=== PATIENT | male | born 1965 | race Two or more races ===

== ENCOUNTER 2017-05-03 23:32 | Emergency (ER) | payer SELFPAY ==
[~2017-05-03] VITALS: Ht 167.6 cm; Wt 72.6 kg
[2017-05-04] LABS: BILIRUBIN,URINE NEGATIVE (NEG); GLUCOSE,URINE NEGATIVE (NEG); NITRITE,URINE NEGATIVE (NEG); PROTEIN,URINE NEGATIVE (NEG-TRACE); UROBILINOGEN,URINE 0.2 mg/dL (0.2 mg/dL)
--- NOTE | 2017-05-04 00:15 | PHYS DOC ---
Adult General Chief Complaint Chief Complaint: ABDOMINAL PAIN HPI HPI Patient is a 51 year old male with complaints of abdominal pain and flank pain that started 3 days ago. She denies any vomiting, fevers, chills, rashes, trauma , falls. No sick contacts. Patient also compresses of dysuria, possible blood in the urine, no discharge. Patient does not describe testicular pain. Patient does not have any significant past medical history. Review of Systems Review of Systems Constitutional: Denies fever or chills [] Eyes: Denies change in visual acuity, redness, or eye pain [] HENT: Denies nasal congestion or sore throat [] Respiratory: Denies cough or shortness of breath [] Cardiovascular: No chest pain GI: Denies nausea, vomiting, bloody stools or diarrhea. Yes to abdominal pain BACK: He is to flank pain left : Denies dysuria or hematuria [] Musculoskeletal: Denies back pain or joint pain [] Integument: Denies rash or skin lesions [] Neurologic: Denies headache, focal weakness or sensory changes [] Endocrine: Denies polyuria or polydipsia [] Current Medications Current Medications Current Medications Medications (Trade) Dose Ordered Sig/Ramona Start Time Stop Time Status Last Admin Dose Admin Hyoscyamine (Anaspaz) 0.125 mg PRN Q4HRS PRN 05/04/17 02:15 Ketorolac Tromethamine (Toradol) 15 mg 1X ONCE 05/04/17 01:00 05/04/17 01:01 DC 05/04/17 01:14 15 MG Morphine Sulfate 2 mg 1X ONCE 05/04/17 01:30 05/04/17 01:31 DC 05/04/17 01:15 2 MG Sodium Chloride 1,000 ml @ 1,000 mls/hr 1X ONCE 05/04/17 01:00 05/04/17 01:59 DC 05/04/17 01:14 1,000 MLS/HR Sucralfate (Carafate) 1 gm 1X ONCE 05/04/17 02:30 05/04/17 02:31 Allergies Allergies Allergies Coded Allergies Type Severity Reaction Last Updated Verified No Known Drug Allergies 05/04/17 No Physical Exam Physical Exam Constitutional: Well developed, well nourished, no acute distress, non-toxic appearance. [] HENT: Normocephalic, atraumatic, bilateral external ears normal, oropharynx moist, no oral exudates, nose normal. [] Eyes: EOMI, conjunctiva normal, no discharge. [] Neck: Normal range of motion, no tenderness, supple, no stridor. [] Cardiovascular:Heart rate regular rhythm, no murmur [] Lungs & Thorax: Bilateral breath sounds clear to auscultation [] Abdomen: Bowel sounds normal, soft, diffuse mild tenderness to palpation without guarding or rebound, no masses, no pulsatile masses. [] Skin: Warm, dry, no erythema, no rash. [] Back: No tenderness, no CVA tenderness. [] Extremities: No tenderness, no cyanosis, no clubbing, ROM intact, no edema. [] Neurologic: Alert and oriented X 3, normal motor function, , no focal deficits noted. [] Psychologic: Affect normal, judgement normal, mood normal. [] Current Patient Data Vital Signs Vital Signs Date Time Temp Pulse Resp B/P (MAP) Pulse Ox O2 Delivery O2 Flow Rate FiO2 05/04/17 01:25 63 16 130/87 (101) 96 Room Air 05/04/17 00:22 97.7 97.7 Lab Values Laboratory Tests Test 05/03/17 23:44 05/04/17 01:10 Urine Collection Type Unknown Urine Color Yellow Urine Clarity Clear Urine pH 6.0 Urine Specific [place] 1.020 Urine Protein Negative mg/dL (NEG-TRACE) Urine Glucose (UA) Negative mg/dL (NEG) Urine Ketones (Stick) Negative mg/dL (NEG) Urine Blood Negative (NEG) Urine Nitrite Negative (NEG) Urine Bilirubin Negative (NEG) Urine Urobilinogen Dipstick 0.2 mg/dL (0.2 mg/dL) Urine Leukocyte Esterase Negative (NEG) Urine RBC Occ /HPF (0-2) Urine WBC 1-4 /HPF (0-4) Urine Squamous Epithelial Cells Few /LPF Urine Bacteria Few /HPF (0-FEW) Urine Mucus Marked /LPF White Blood Count 6.7 x10^3/uL (4.0-11.0) Red Blood Count 5.11 x10^6/uL (4.30-5.70) Hemoglobin 14.6 g/dL (13.0-17.5) Hematocrit 43.2 % (39.0-53.0) Mean Corpuscular Volume 85 fL (79-100) Mean Corpuscular Hemoglobin 29 pg (25-35) Mean Corpuscular Hemoglobin Concent 34 g/dL (31-37) Red Cell Distribution Width 13.4 % (11.5-14.5) Platelet Count 212 x10^3/uL (140-400) Neutrophils (%) (Auto) 63 % (31-73) Lymphocytes (%) (Auto) 27 % (24-48) Monocytes (%) (Auto) 7 % (0-9) Eosinophils (%) (Auto) 3 % (0-3) Basophils (%) (Auto) 1 % (0-3) Neutrophils # (Auto) 4.2 x10^3uL (1.8-7.7) Lymphocytes # (Auto) 1.8 x10^3/uL (1.0-4.8) Monocytes # (Auto) 0.5 x10^3/uL (0.0-1.1) Eosinophils # (Auto) 0.2 x10^3/uL (0.0-0.7) Basophils # (Auto) 0.0 x10^3/uL (0.0-0.2) Sodium Level 139 mmol/L (136-145) Potassium Level 3.9 mmol/L (3.5-5.1) Chloride Level 105 mmol/L (98-107) Carbon Dioxide Level 27 mmol/L (21-32) Anion Gap 7 (6-14) Blood Urea Nitrogen 13 mg/dL (8-26) Creatinine 0.7 mg/dL (0.7-1.3) Estimated GFR (Cockcroft-Gault) 118.9 BUN/Creatinine Ratio 19 (6-20) Glucose Level 101 mg/dL (70-99) H Calcium Level 8.5 mg/dL (8.5-10.1) Total Bilirubin 0.6 mg/dL (0.2-1.0) Aspartate Amino Transferase (AST) 42 U/L (15-37) H Alanine Aminotransferase (ALT) 39 U/L (16-63) Alkaline Phosphatase 98 U/L (46-116) Total Protein 7.8 g/dL (6.4-8.2) Albumin 3.2 g/dL (3.4-5.0) L Albumin/Globulin Ratio 0.7 (1.0-1.7) L Laboratory Tests 05/04/17 01:10 Laboratory Tests 05/04/17 01:10 EKG EKG [] Radiology/Procedures Radiology/Procedures CT no acute findings[] Course & Med Decision Making Course & Med Decision Making Pertinent Labs and Imaging studies reviewed. (See chart for details) pt in no distress, in form of labs and imaging and need for follow-up and recheck. Patient and family understand the need for follow-up and reevaluation. [] Dragon Disclaimer Dragon Disclaimer This electronic medical record was generated, in whole or in part, using a voice recognition dictation system. Departure Departure Impression: Primary Impression: Abdominal pain Disposition: HOME, SELF-CARE Condition: STABLE Referrals: NO PCP (PCP) Patient Instructions: Abdominal Pain (Nonspecific) Additional Instructions: Please follow-up with your PCP for recheck and reevaluation in one to 2 days, or he can follow one of the clinics in the list provided to you. If your symptoms worsen or new concerning symptoms develop and ordered your PCP is not available please return to the ED for recheck and reevaluation. Scripts Acetaminophen With Codeine (ACETAMINOPHEN-COD #3 TABLET) 1 Each Tablet 1 TAB PO PRN Q6HRS Y for PAIN for 2 Days, #8 TAB Prov: Jesus RUFF MD 05/04/17 Jesus RUFF MD May 04, 2017 00:15
[2017-05-04 00:26] LABS: RBC,URINE OCC /HPF (0-2)
[2017-05-04 00:27] LABS: BACTERIA,URINE FEW /HPF (0-FEW); SQUAMOUS EPITHELIAL CELL,UR FEW /LPF
[2017-05-04] MEDS ORDERED: IV NORMAL SALINE 1000ML BAG 1,000 ML IV ONE (01:00)
[2017-05-04] MEDS ORDERED: KETOROLAC 15 MG/ML VIAL. IV ONE (01:00)
[2017-05-04] MEDS ORDERED: MORPHINE SULFATE 2 MG/ML DISP.SYRIN. IM ONE (01:00)
[2017-05-04] MEDS ORDERED: MORPHINE SULFATE 2 MG/ML DISP.SYRIN. IV ONE (01:30)
--- NOTE | 2017-05-04 01:34 | RAD ---
CT abdomen and pelvis without contrast: Reason for examination: Abdominal pain and flank pain. Helical images were obtained through the abdomen and pelvis with no intravenous or oral contrast administered. Reconstruction was performed in sagittal and coronal planes. Exposure: One or more of the following individualized dose reduction techniques were utilized for this examination: 1. Automated exposure control 2. Adjustment of the mA and/or kV according to patient size 3. Use of iterative reconstruction technique. Lung bases show some dependent atelectasis. The heart size is normal with no pericardial effusion. No abnormality seen at the liver, spleen, pancreas or adrenal glands. The gallbladder is contracted but no choleliths are identified. The abdominal aorta and inferior vena cava show no acute abnormalities. No abnormality seen at the appendix. There is no evidence of diverticulosis or diverticulitis. The small intestinal tract is not distended and shows no wall thickening or evidence of obstruction. The kidneys show no renal masses, renal calculi, hydronephrosis or evidence of obstructive uropathy. No abnormality seen at the bladder, prostate gland or seminal vesicles. No free fluid or free air is seen in the abdomen or pelvis. No acute bony abnormalities are seen. IMPRESSION: No renal calculi or evidence of obstructive uropathy. No acute abnormality seen in the abdomen or pelvis. Electronically signed by: Dena Fracnis MD (05/04/2017 1:30 AM) [facility] [place]
[2017-05-04 01:41] LABS: BASO % 1 % (0-3); EOS % 3 % (0-3); HEMATOCRIT 43.2 % (39.0-53.0); HEMOGLOBIN 14.6 g/dL (13.0-17.5); LYMPH # 1.8 x10^3/uL (1.0-4.8); LYMPH % 27 % (24-48); MEAN CORPUSCULAR HEMOGLOBIN 29 pg (25-35); MEAN CORPUSCULAR HGB CONC 34 g/dL (31-37); MEAN CORPUSCULAR VOLUME 85 fL (79-100); MONO % 7 % (0-9); NEUT % 63 % (31-73); PLATELET COUNT 212 x10^3/uL (140-400); RED BLOOD COUNT 5.11 x10^6/uL (4.30-5.70); RED CELL DISTRIBUTION WIDTH 13.4 % (11.5-14.5); WHITE BLOOD COUNT 6.7 x10^3/uL (4.0-11.0)
[2017-05-04 01:52] LABS: CALCIUM 8.5 mg/dL (8.5-10.1); CREATININE 0.7 mg/dL (0.7-1.3); GFR 118.9; POTASSIUM 3.9 mmol/L (3.5-5.1)
[2017-05-04 02:00] LABS: ALBUMIN 3.2 g/dL (3.4-5.0); ALBUMIN/GLOBULIN RATIO 0.7 (1.0-1.7); TOTAL BILIRUBIN 0.6 mg/dL (0.2-1.0); TOTAL PROTEIN 7.8 g/dL (6.4-8.2)
[2017-05-04] MEDS ORDERED: HYOSCYAMINE 0.125 MG TAB.RAPDIS PO PRN (02:15)
[2017-05-04] MEDS ORDERED: ACET1TAB33 PO (02:25)
[2017-05-04] MEDS ORDERED: SUCRALFATE 1 GM/10 ML ORAL.SUSP. PEG ONE (02:30)
[2017-05-04 02:32] VITALS: BP 129/75
== END 2017-05-04 03:07 | disposition home or self-care (01) ==
LOC: ER 23:32
DX: R10.84 Generalized abdominal pain (principal); R30.0 Dysuria
CPT/HCPCS: 36415; 74176; 80053; 81001; 85025; 96361; 96374; 96375; 99285; J1885; J2270; J7030

== ENCOUNTER 2019-12-04 09:44 | Emergency (ER) | payer OTHER ==
[~2019-12-04] VITALS: Ht 167.6 cm; Wt 70.0 kg
[~2019-12-04 09:44] MED LIST: ACET1TAB33 PO
[2019-12-04 09:55] VITALS: BP 159/90
[2019-12-04 10:25] LABS: BASO % 0 % (0-3); EOS # 0.1 x10^3/uL (0.0-0.7); EOS % 2 % (0-3); HEMATOCRIT 49.2 % (39.0-53.0); HEMOGLOBIN 16.6 g/dL (13.0-17.5); LYMPH # 1.2 x10^3/uL (1.0-4.8); LYMPH % 21 % (24-48); MEAN CORPUSCULAR HEMOGLOBIN 29 pg (25-35); MEAN CORPUSCULAR HGB CONC 34 g/dL (31-37); MEAN CORPUSCULAR VOLUME 87 fL (79-100); MONO # 0.4 x10^3/uL (0.0-1.1); MONO % 6 % (0-9); NEUT # 4.3 x10^3/uL (1.8-7.7); NEUT % 71 % (31-73); PLATELET COUNT 217 x10^3/uL (140-400); RED BLOOD COUNT 5.68 x10^6/uL (4.30-5.70); RED CELL DISTRIBUTION WIDTH 13.9 % (11.5-14.5); WHITE BLOOD COUNT 6.1 x10^3/uL (4.0-11.0)
--- NOTE | 2019-12-04 10:29 | PHYS DOC ---
Past Medical History Past Medical History: No Pertinent History Past Surgical History: No Surgical History Smoking Status: Never Smoker Alcohol Use: None Drug Use: None General Adult EDM: Chief Complaint: Palpitations HPI: HPI: Patient is a 54-year-old [place] male who presents to the emergency department with anxiety, palpitations and 3 weeks of chest discomfort. His niece who is the supervisor wrapping room states that he is just had a close family friend recently which is caused increased nervousness. He denies any shortness of breath or dyspnea on exertion. He denies any fever chills or sweats. He denies cough or congestion. The symptoms were worse this morning, they woke him up so he decided to come to the emergency department for further evaluation. [] Review of Systems: Review of Systems: Constitutional: Denies fever or chills. [] Eyes: Denies change in visual acuity. [] HENT: Denies nasal congestion or sore throat. [] Respiratory: Denies cough or shortness of breath. [] Cardiovascular: Reports chest pain and palpitations [] GI: Denies abdominal pain, nausea, vomiting, bloody stools or diarrhea. [] : Denies dysuria. [] Musculoskeletal: Denies back pain or joint pain. [] Integument: Denies rash. [] Neurologic: Denies headache, focal weakness or sensory changes. [] Endocrine: Denies polyuria or polydipsia. [] Lymphatic: Denies swollen glands. [] Psychiatric: Reports anxiety [] Heart Score: HEART Score for Chest Pain: HEART Score for Chest Pain Response (Comments) Value History Slighlty/Non-Suspicious 0 ECG Normal 0 Age >45 - < 65 1 Risk Factors No Risk Factors 0 Troponin < Normal Limit 0 Total 1 Risk Factors: Risk Factors: DM, Current or recent (<one month) smoker, HTN, HLP, family history of CAD, obesity. Risk Scores: Score 0 - 3: 2.5% MACE over next 6 weeks - Discharge Home Score 4 - 6: 20.3% MACE over next 6 weeks - Admit for Clinical Observation Score 7 - 10: 72.7% MACE over next 6 weeks - Early Invasive Strategies Current Medications: Current Medications Medications (Trade) Dose Ordered Sig/Ramona Start Time Stop Time Status Last Admin Dose Admin Aspirin (Aspirin Chewable) 324 mg 1X ONCE 12/04/19 10:30 12/04/19 10:31 12/04/19 10:13 324 MG Diazepam (Valium) 5 mg 1X ONCE 12/04/19 10:30 12/04/19 10:31 12/04/19 10:13 5 MG Allergies: Allergies: Allergies Coded Allergies Type Severity Reaction Last Updated Verified No Known Drug Allergies 05/04/17 No Physical Exam: PE: Constitutional: Well developed, well nourished, no acute distress, non-toxic appearance. [] HENT: Normocephalic, atraumatic, bilateral external ears normal, oropharynx moist, no oral exudates, nose normal. [] Eyes: PERRLA, EOMI, conjunctiva normal, no discharge. [] Neck: Normal range of motion, no tenderness, supple, no stridor. [] Cardiovascular:Heart rate regular rhythm, no murmur [] Lungs & Thorax: Bilateral breath sounds clear to auscultation [] Abdomen: Bowel sounds normal, soft, no tenderness, no masses, no pulsatile masses. [] Skin: Warm, dry, no erythema, no rash. [] Back: No tenderness, no CVA tenderness. [] Extremities: No tenderness, no cyanosis, no clubbing, ROM intact, no edema. [] Neurologic: Alert and oriented X 3, normal motor function, normal sensory function, no focal deficits noted. [] Psychologic: Anxious [] Current Patient Data: Labs: Laboratory Tests Test 12/04/19 10:00 White Blood Count 6.1 x10^3/uL (4.0-11.0) Red Blood Count 5.68 x10^6/uL (4.30-5.70) Hemoglobin 16.6 g/dL (13.0-17.5) Hematocrit 49.2 % (39.0-53.0) Mean Corpuscular Volume 87 fL (79-100) Mean Corpuscular Hemoglobin 29 pg (25-35) Mean Corpuscular Hemoglobin Concent 34 g/dL (31-37) Red Cell Distribution Width 13.9 % (11.5-14.5) Platelet Count 217 x10^3/uL (140-400) Neutrophils (%) (Auto) 71 % (31-73) Lymphocytes (%) (Auto) 21 % (24-48) L Monocytes (%) (Auto) 6 % (0-9) Eosinophils (%) (Auto) 2 % (0-3) Basophils (%) (Auto) 0 % (0-3) Neutrophils # (Auto) 4.3 x10^3/uL (1.8-7.7) Lymphocytes # (Auto) 1.2 x10^3/uL (1.0-4.8) Monocytes # (Auto) 0.4 x10^3/uL (0.0-1.1) Eosinophils # (Auto) 0.1 x10^3/uL (0.0-0.7) Basophils # (Auto) 0.0 x10^3/uL (0.0-0.2) Laboratory Tests 12/04/19 10:00 Vital Signs: Vital Signs Date Time Temp Pulse Resp B/P (MAP) Pulse Ox O2 Delivery O2 Flow Rate FiO2 12/04/19 09:55 98.4 104 20 159/90 (113) 98 Room Air 98.4 EKG: EKG: EKG: Normal sinus rhythm rate of [address]-T changes [] Radiology/Procedures: Radiology/Procedures: [] Impression: REASON: chest pain PROCEDURE: CHEST AP ONLY EXAM: CHEST AP ONLY INDICATION: Chest pain. TECHNIQUE: Single view COMPARISON: None FINDINGS: The heart size is normal. The great vessels appear unremarkable. There is no hilar or mediastinal mass. The lungs are clear. There is no pleural effusion or pneumothorax. There are no significant osseous abnormalities. IMPRESSION: No active cardiopulmonary disease. Course & Med Decision Making: Course & Med Decision Making Pertinent Labs and Imaging studies reviewed. (See chart for details) [ED course: Evaluation reveals an anxious 54-year-old male. He was given Valium during his stay in the department which did help alleviate his symptoms. Given the length of his symptoms and normal EKG and troponin I feel he is at a very low risk for any kind of heart issue. Think patient is safe for discharge home.] Dragon Disclaimer: Dragon Disclaimer: This electronic medical record was generated, in whole or in part, using a voice recognition dictation system. Departure Departure Impression: Primary Impression: Palpitations Additional Impression: Anxiety about health Disposition: 01 HOME, SELF-CARE Condition: STABLE Referrals: NO PCP (PCP) Patient Instructions: Anxiety and Panic Attacks, Chest Pain (Nonspecific), Palpitations Additional Instructions: Return to the emergency department with any new or concerning symptoms Scripts Alprazolam (ALPRAZOLAM) 0.25 Mg Tablet 0.5 MG PO PRN Q6HRS PRN for ANXIETY / AGITATION, #20 TAB 0 Refills Prov: DARRICK MIR DO 12/04/19 DARRICK MIR DO December 04, 2019 10:29
[2019-12-04] MEDS ORDERED: diazePAM 5 MG TABLET PO ONE (10:30)
[2019-12-04] MEDS ORDERED: ASPIRIN CHEWABLE 81 MG TABLET. PO ONE (10:30)
[2019-12-04 10:37] LABS: GFR 77.9; POTASSIUM 3.2 mmol/L (3.5-5.1)
[2019-12-04 10:43] LABS: ALBUMIN 3.6 g/dL (3.4-5.0); ALBUMIN/GLOBULIN RATIO 0.8 (1.0-1.7); TOTAL BILIRUBIN 0.7 mg/dL (0.2-1.0); TOTAL PROTEIN 8.2 g/dL (6.4-8.2)
[2019-12-04] MEDS ORDERED: ALPR0.254 PO (10:48)
--- NOTE | 2019-12-06 08:12 | EKG ---
[facility] [address] [place] [address] Test Date: 2019-12-04 Test Time: 10:04:22 Pat Name: MICHEL LUNA Department: Room: Gender: M Cook [place]: : 1965 Requested By: DARRICK MIR Order Number: [id number] Reading MD: Jorge Alberto Cross Measurements Intervals [place] Rate: 92 P: 34 [place]: 146 QRS: 52 QRSD: 100 T: 47 QT: 366 QTc: 458 Interpretive Statements SINUS RHYTHM T ABNORMALITY IN ANTERIOR LEADS ABNORMAL ECG RI6.01 No previous ECG available for comparison Electronically Signed On 12-06-2019 8:47:54 CDT by Jorge Alberto Cross
== END 2019-12-04 10:59 | disposition home or self-care (01) ==
LOC: ER 09:44
DX: R00.2 Palpitations (principal); F41.9 Anxiety disorder, unspecified; R07.89 Other chest pain
CPT/HCPCS: 36415; 71045; 80053; 84443; 84484; 85025; 93005; 99285-25

== ENCOUNTER 2019-12-24 00:55 | Emergency (ER) | payer OTHER ==
[~2019-12-24] VITALS: Ht 167.6 cm; Wt 71.5 kg
[~2019-12-24 00:55] MED LIST changes: +ALPR0.254 PO
[2019-12-24] MEDS ORDERED: ZOLP10TA PO (01:34)
--- NOTE | 2019-12-24 01:35 | PHYS DOC ---
Past Medical History Past Medical History: No Pertinent History Past Surgical History: No Surgical History Smoking Status: Never Smoker Alcohol Use: None Drug Use: None General Adult EDM: Chief Complaint: Insomnia HPI: HPI: Patient is a 54 year old male who presents with complaint that he is not sleeping very well. Patient was seen at clinic today and was prescribed trazodone but he took 2 of them and still was not able to sleep. He states that he now he is just lightheaded. He does also admit to some burning in his chest and was told that it is reflux. He denies any vomiting or diarrhea. [] Review of Systems: Review of Systems: Constitutional: Denies fever or chills. [] Respiratory: Denies cough or shortness of breath. [] Cardiovascular: Denies chest pain or edema. [] Integument: Denies rash. [] Neurologic: Denies headache, focal weakness or sensory changes. [] Heart Score: Risk Factors: Risk Factors: DM, Current or recent (<one month) smoker, HTN, HLP, family history of CAD, obesity. Risk Scores: Score 0 - 3: 2.5% MACE over next 6 weeks - Discharge Home Score 4 - 6: 20.3% MACE over next 6 weeks - Admit for Clinical Observation Score 7 - 10: 72.7% MACE over next 6 weeks - Early Invasive Strategies Allergies: Allergies: Allergies Coded Allergies Type Severity Reaction Last Updated Verified No Known Drug Allergies 05/04/17 No Physical Exam: PE: Constitutional: Well developed, well nourished, no acute distress, non-toxic appearance. [] HENT: Normocephalic, atraumatic, bilateral external ears normal, oropharynx moist, no oral exudates, nose normal. [] Cardiovascular: Regular rate and rhythm [] Lungs & Thorax: Bilateral breath sounds clear to auscultation [] Abdomen: Bowel sounds normal, soft, no tenderness. [] Skin: Warm, dry, no erythema, no rash. [] Neurologic: Alert and oriented X 3, no focal deficits noted. [] EKG: EKG: [] Radiology/Procedures: Radiology/Procedures: [] Course & Med Decision Making: Course & Med Decision Making Pertinent Labs and Imaging studies reviewed. (See chart for details) [] Dragon Disclaimer: Dragon Disclaimer: This electronic medical record was generated, in whole or in part, using a voice recognition dictation system. Departure Departure Impression: Primary Impression: Insomnia Qualified Codes: G47.00 - Insomnia, unspecified Disposition: HOME, SELF-CARE Condition: STABLE Referrals: NO PCP (PCP) Patient Instructions: Insomnia Scripts Zolpidem Tartrate (AMBIEN) 10 Mg Tablet 10 MG PO PRN QHS PRN for INSOMNIA, #10 TAB 0 Refills Prov: ALBAN BETANCOURT Jr. DO 12/24/19 ALBAN BETANCOURT Jr. DO December 24, 2019 01:34
[2019-12-24 01:57] VITALS: BP 138/90
[2019-12-24] MEDS ORDERED: LIDO:MAALOX 1:1 20 ML SINGLE DOSE. SWSW ONE (02:00)
[2019-12-24] MEDS ORDERED: TRAZ150T49 PO (02:03)
[2019-12-24] MEDS ORDERED: HYDR25TA PO (02:03)
== END 2019-12-24 01:57 | disposition home or self-care (01) ==
LOC: ER 00:55
DX: G47.00 Insomnia, unspecified (principal); R42 Dizziness and giddiness
CPT/HCPCS: 99283

== ENCOUNTER 2019-12-27 15:51 | Emergency (ER) | payer OTHER ==
[~2019-12-27] VITALS: Ht 167.6 cm; Wt 72.0 kg
[~2019-12-27 15:51] MED LIST changes: +HYDR25TA PO; +TRAZ150T49 PO; +ZOLP10TA PO
[2019-12-27 16:29] VITALS: BP 148/93
[2019-12-27] MEDS ORDERED: LIDO:MAALOX 1:1 20 ML SINGLE DOSE. SWSW ONE (17:00)
[2019-12-27] MEDS ORDERED: OMEP20TA63 PO (17:01)
[2019-12-27] MEDS ORDERED: SUCR1TAB35 PO (17:01)
--- NOTE | 2019-12-27 17:01 | PHYS DOC ---
Past Medical History Past Medical History: Other Additional Past Medical Histor: insomnia Past Surgical History: No Surgical History Smoking Status: Never Smoker Alcohol Use: None Drug Use: None General Adult EDM: Chief Complaint: Insomnia HPI: HPI: Patient is a 54 year old male who presented to the ER today due to burning sensation in his epigastric area that kept him from sleeping for about a month. Patient was seen here on 12/04/19 for the same problem, work up included labs and EKG shown no significant problem. He was diagnosed with palpitation, put on benzo and vistaril. He took the medication but did not get better so he came back here on 12/24/19 due to not able to sleep. He was given trazodone and Ambien. Patient said the ambien helped him sleep for 6 hours for one night but he continues to wake up due to burning sensation, pain in his epigastric area. He denied any shortness of air, no chest pain, no nausea or vomiting. No fever. He decided to come back here for reevaluation. Review of Systems: Review of Systems: Constitutional: Denies fever or chills. [] Eyes: Denies change in visual acuity. [] HENT: Denies nasal congestion or sore throat. [] Respiratory: Denies cough or shortness of breath. [] Cardiovascular: Denies chest pain or edema. [] GI: Denies abdominal pain, nausea, vomiting, bloody stools or diarrhea. [] : Denies dysuria. [] Musculoskeletal: Denies back pain or joint pain. [] Integument: Denies rash. [] Neurologic: Denies headache, focal weakness or sensory changes. [] Endocrine: Denies polyuria or polydipsia. [] Lymphatic: Denies swollen glands. [] Psychiatric: Denies depression or anxiety. NOT ABLE TO SLEEP Heart Score: Risk Factors: Risk Factors: DM, Current or recent (<one month) smoker, HTN, HLP, family history of CAD, obesity. Risk Scores: Score 0 - 3: 2.5% MACE over next 6 weeks - Discharge Home Score 4 - 6: 20.3% MACE over next 6 weeks - Admit for Clinical Observation Score 7 - 10: 72.7% MACE over next 6 weeks - Early Invasive Strategies Current Medications: Current Medications Medications (Trade) Dose Ordered Sig/Ramona Start Time Stop Time Status Last Admin Dose Admin Multi-Ingredient Mouthwash/Gargle (Gi Cocktail) 20 ml 1X ONCE 12/27/19 17:00 12/27/19 17:01 UNV Allergies: Allergies: Allergies Coded Allergies Type Severity Reaction Last Updated Verified No Known Drug Allergies 05/04/17 No Physical Exam: PE: Constitutional: Well developed, well nourished, no acute distress, non-toxic appearance. [] HENT: Normocephalic, atraumatic, bilateral external ears normal, oropharynx moist, no oral exudates, nose normal. [] Eyes: PERRLA, EOMI, conjunctiva normal, no discharge. [] Neck: Normal range of motion, no tenderness, supple, no stridor. [] Cardiovascular:Heart rate regular rhythm, no murmur [] Lungs & Thorax: Bilateral breath sounds clear to auscultation [] Abdomen: Bowel sounds normal, soft, no tenderness, no masses, no pulsatile masses. [] Skin: Warm, dry, no erythema, no rash. [] Back: No tenderness, no CVA tenderness. [] Extremities: No tenderness, no cyanosis, no clubbing, ROM intact, no edema. [] Neurologic: Alert and oriented X 3, normal motor function, normal sensory function, no focal deficits noted. [] Psychologic: Affect normal, judgement normal, mood normal. [] Current Patient Data: Vital Signs: Vital Signs Date Time Temp Pulse Resp B/P (MAP) Pulse Ox O2 Delivery O2 Flow Rate FiO2 12/27/19 16:29 98.5 78 12 148/93 (111) 95 Room Air 98.5 EKG: EKG: [] Radiology/Procedures: Radiology/Procedures: [] Course & Med Decision Making: Course & Med Decision Making Pertinent Labs and Imaging studies reviewed. (See chart for details) Patient is a 54 year old male who most likely suffer gastritis, GERD, presented with burning pain in his epigastric area, kept him from sleeping at night, will put him on PPI and carafate to see how he is doing with it. He will need to follow up with her family doctor for reevaluation. Ramses Disclaimer: Ramses Disclaimer: This electronic medical record was generated, in whole or in part, using a voice recognition dictation system. Departure Departure Impression: Primary Impression: Gastritis Additional Impression: GERD (gastroesophageal reflux disease) Disposition: HOME, SELF-CARE Condition: STABLE Referrals: NO PCP (PCP) PLEASE CALL YOUR FAMILY DOCTOR FOR FOLLOW UP THIS WEEK. Patient Instructions: Gastritis, Adult Scripts Omeprazole Magnesium (PRILOSEC OTC) 20 Mg Tablet. 1 TAB PO DAILY for 30 Days, #30 TAB 0 Refills Prov: SUZETTE CHRISTENSEN DO 12/27/19 Sucralfate (CARAFATE) 1 Gm Tablet 1 TAB PO QID for 14 Days, #56 TAB 0 Refills Prov: SUZETTE CHRISTENSEN DO 12/27/19 SUZETTE CHRISTENSEN DO December 27, 2019 17:01
== END 2019-12-27 17:40 | disposition home or self-care (01) ==
LOC: ER 15:51
DX: K29.70 Gastritis, unspecified, without bleeding (principal); K21.9 Gastro-esophageal reflux disease without esophagitis; G47.00 Insomnia, unspecified
CPT/HCPCS: 99283

== ENCOUNTER 2019-12-29 09:46 | Inpatient (IN) | payer OTHER ==
[~2019-12-29] VITALS: Ht 167.6 cm; Wt 72.3 kg
[~2019-12-29 09:46] MED LIST changes: +OMEP20TA63 PO; +SUCR1TAB35 PO
[2019-12-29 10:38] VITALS: BP 139/93
[2019-12-29] MEDS ORDERED: ZOLPIDEM 5 MG TABLET. PO PRN (11:15)
[2019-12-29] MEDS ORDERED: ASPIRIN CHEWABLE 81 MG TABLET. PO ONE ×2 (11:15→16:45)
--- NOTE | 2019-12-29 11:18 | PDOC2 ---
STEPHANIA WHITING CERTIFIED REHABILITATION COUNSELOR 12/29/19 1117: CARDIAC CONSULT DATE OF CONSULT Date of Consult DATE: 12/29/19 TIME: 11:16 REASON FOR CONSULT Reason for Consult: Chest pain REFERRING PHYSICIAN Referring Physician: Dr. Hernandez SOURCE Source: Chart review, Patient HISTORY OF PRESENT ILLNESS HISTORY OF PRESENT ILLNESS This is a yo female who was a direct admit secondary to chest pain. Patient speak [place]. 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 Patient reports he has been experiencing burning pain in his central chest, epigastric region since the end of October. Reports pain occurs in the late evening and is much worse at night. Has been unable to sleep at night due to the pain. After he gets up in the morning, pain resolves. No associated shortness of breath, dizziness, diaphoresis, palpitation. Some mild nausea. Has had a couple visits to the ED for this pain. Most recently, was seen in the ED 12/27/19 and was diagnosed with GERD, gastritis. Was started on Carafate and Protonix. Reports this has not significantly improved pain PAST MEDICAL HISTORY Cardiovascular: No pertinent hx GI: GERD Psych: Depression PAST SURGICAL HISTORY Past Surgical History: No pertinent history FAMILY HISTORY Family History: Other (noncontributory ) SOCIAL HISTORY Smoke: Quit (15 years ago ) ALCOHOL: none Drugs: None Lives: with Family ALLERGIES ALLERGIES: Coded Allergies: No Known Drug Allergies (Unverified , 05/04/17) ROS Review of System 14 point ROS conducted with pertinent positives noted above in HPI PHYSICAL EXAM General: Alert, Oriented X3, Cooperative, No acute distress HEENT: Atraumatic, Mucous membr. moist/pink Lungs: Clear to auscultation, Normal air movement Heart: Regular rate Abdomen: Soft, No tenderness Extremities: No edema, Normal pulses Skin: No significant lesion Neuro: Normal speech, Sensation intact Psych/Mental Status: Mental status NL, Mood NL MUSCULOSKELETAL: No joint tenderness VITALS/I&O VITALS/I&O: Vital Signs Date Time Temp Pulse Resp B/P (MAP) Pulse Ox O2 Delivery O2 Flow Rate FiO2 12/29/19 10:38 98.6 84 18 139/93 (108) 96 Room Air 98.6 ASSESSMENT/PLAN ASSESSMENT/PLAN 1. Chest pain, atypical. Most probably GI in nature 2. GERD 3. Depression Recommendations Routine labs Trend trop Lipids, TSH EKG CXR MPI ordered NPO p MN. RANDY DUFFY MD 12/30/19 0759: CARDIAC CONSULT ASSESSMENT/PLAN ASSESSMENT/PLAN Late entry for 12/29/19 Pt. seen and examined. Agree with above CLINICAL APPEALS AUDITOR note. Less likely to be CAD but due to language barrier cannot rule out cardiac pathology. Agree with stress testing. STEPHANIA WHITING APRN December 29, 2019 11:17 RANDY DUFFY MD December 30, 2019 07:59
[2019-12-29] MEDS: SUCRALFATE 1 GM TABLET. PO SCH ×3 (11:30→20:19)
[2019-12-29 12:13] LABS: BASO % 1 % (0-3); EOS # 0.1 x10^3/uL (0.0-0.7); EOS % 2 % (0-3); HEMOGLOBIN 15.9 g/dL (13.0-17.5); LYMPH # 1.4 x10^3/uL (1.0-4.8); LYMPH % 20 % (24-48); MEAN CORPUSCULAR HEMOGLOBIN 30 pg (25-35); MEAN CORPUSCULAR HGB CONC 35 g/dL (31-37); MEAN CORPUSCULAR VOLUME 86 fL (79-100); MONO # 0.4 x10^3/uL (0.0-1.1); MONO % 5 % (0-9); NEUT % 73 % (31-73); PLATELET COUNT 215 x10^3/uL (140-400); RED BLOOD COUNT 5.38 x10^6/uL (4.30-5.70); RED CELL DISTRIBUTION WIDTH 13.3 % (11.5-14.5); WHITE BLOOD COUNT 6.8 x10^3/uL (4.0-11.0)
[2019-12-29 12:42] LABS: ALBUMIN 3.7 g/dL (3.4-5.0); ALBUMIN/GLOBULIN RATIO 0.9 (1.0-1.7); CALCIUM 8.2 mg/dL (8.5-10.1); GFR 77.9; POTASSIUM 3.6 mmol/L (3.5-5.1); TOTAL BILIRUBIN 0.5 mg/dL (0.2-1.0); TOTAL PROTEIN 7.9 g/dL (6.4-8.2)
[2019-12-29 12:43] LABS: CHOLESTEROL/HDL RATIO 5.3
--- NOTE | 2019-12-29 14:15 | NUR ---
pt leaving unit for stress test
[2019-12-29] MEDS ORDERED: REGADENOSON 0.4 MG/5 ML DISP.SYRIN. IV ONE (15:00)
--- NOTE | 2019-12-29 15:28 | RAD ---
EXAM: CHEST PA LATERAL 12/29/2019 12:03 PM CLINICAL INDICATION:Chest pain COMPARISON:Chest radiograph 12/04/2019 TECHNIQUE:PA and lateral views of the chest FINDINGS:The heart and mediastinum are normal. Lungs are adequately expanded. No pulmonary edema. No consolidation, pleural effusion, or pneumothorax. No acute osseous abnormality. IMPRESSION:No acute cardiopulmonary abnormality. Electronically signed by: Chhaya Le MD (12/29/2019 3:25 PM) [id number]
--- NOTE | 2019-12-29 16:04 | NUR ---
pt returned from stress test at approx 1605.
[2019-12-29] MEDS: PANTOPRAZOLE 40 MG TABLET.DR. PO SCH (16:47)
--- NOTE | 2019-12-29 17:40 | RAD ---
MR#: [id number] Date of Study: 12/29/2019 Ordering Physician: JACOB ELIZONDO, Referring Physician: CUCA MAYO Tech: RT Basil Jean) (N) APPROVED REPORT Test Type: Pharmacological Stress Nurse/Tech: RT Miranda (Cristal) (N) Test Indications: chest pain Cardiac History: none Medications: see EHR Medical History: see EHR Resting ECG: sinus rhythm Resting Heart Rate: 66 bpm Resting Blood Pressure: 123/81mmHg Nurse/Tech Notes Attempted treadmill first but to unsafe and hard time communicating with patient since he does not sp eak Maori. Consent: The procedure was explained to the patient in lay terms. Informed consent was witnessed. Servando eout was entered into [employer]. History and Stress Test performed by RT Basil Jean) (N) Pharm. Details Pharmacologic stress testing was performed using 0.4mg per 5ml of regadenoson given intravenously ove r 7-10 seconds. POST EXERCISE Reason for Termination: Infusion complete Max HR: 118 bpm Max Blood Pressure: 153/69mmHg Chest Pain: No. Arrhythmia: No. INTERPRETATION Stress EKG Conclusion: Baseline EKG showed sinus rhythm. No ischemic changes at peak stress. No arr hythmias. Imaging Protocol IMAGE PROTOCOL: Rest Tc-99m/stress Tc-99m 1 day Rest: Stress: Viability: Radiopharm.Tc99m PpebmlbjiNu01b Sestamibi Dose10.6mCi 31.6mCi Duration 15min. 10min. Img Date 12/29/2019 12/29/2019 Inj-Img Emep49pth. 45min. Rest Admin Site:IV - Right HandAdministrator:RT Miranda (Cristal)(N) Stress Admin Site: IV - Right HandAdministrator: RT Basil Jean)(N) STRESS DATA End Diast. Vol.71.0mlAv. Heart Rate85.0bpm End Syst. Vol.12.0mlCO Index BSA0.0L/min Myocardial Llbn305.0gEject. Astbyqug42.0% Stress Rates Pk. Fill Rate4.39EDV/secLVtime Pk. Fill 197.45msec Pk. Empty Rate5.74ESV/secLVtime Pk. Uhjot128.52msec 1/3 Pk. Fill1.88EDV/sec Stress Scores Regional WT1.00Summed WT4.00 Regional WM0.00Summed WM0.00 Study quality was good. Left Ventricular size was Normal at Rest and Stress. Lung uptake was . Left Ventricular ejection fraction is 83%. The rest and stress images show normal perfusion, normal contraction and thickening. LV Perf. Quant 17 Seg. SSS2.00 17 Seg. SRS1.00 17 Seg. SDS1.00 Stress Defect Extent (% LAD)0.00Rest Defect Extent (% LAD)0.00Rev. Defect Extent (% LAD)0.00 Stress Defect Extent (% LCX) 20.00Rest Defect Extent (% LCX)0.00Rev. Defect Extent (% LCX)11.30 Stress Defect Extent (% RCA)0.00Rest Defect Extent (% RCA)0.00Rev. Defect Extent (% RCA)0.00 Stress Defect Extent (% MARIA LUISA)3.50Rest Defect Extent (% MARIA LUISA)0.00Rev. Defect Extent (% MARIA LUISA)2.00 Conclusion 1. Regadenoson cardioisotope stress test did not show any evidence of ischemia or infarct. 2. Normal left ventricular systolic function with ejection fraction calculated at 83%. 3. Low risk for cardiac events. Signed by : Jorge Alberto Cross, Electronically Approved : 12/29/2019 17:40:05
[2019-12-29 18:04] VITALS: BP 134/84
--- NOTE | 2019-12-29 19:34 | HP ---
ADMIT DATE: 12/29/2019 CHIEF COMPLAINT: Chest pain. HISTORY OF PRESENT ILLNESS: A 54-year-old man who for the last few weeks has had what he describes as a "burning and squeezing pain in his lower chest and upper epigastric area." He denies exertional component, vomiting, dysphagia, melena, hematochezia, fever and does note some radiation to his upper chest at times and perhaps his back. There is no clear exertional component to the pain, although he appears to have some diaphoresis at times as well. He has been to the ER 2 times at least, has been on omeprazole for about the last week without any benefit. Carafate was added in the ER as well. Chest x-ray, EKG and laboratory studies in the ER were unremarkable. He has no cardiovascular history. He has also been having very poor sleep, which he believes is related to having these symptoms during the night and medications for sleep did not benefit again to this point. PAST SURGICAL HISTORY/MEDICATIONS: No surgeries or other prescriptions aside from omeprazole and Carafate. PAST MEDICAL HISTORY: He has had no other serious medical problems. SOCIAL HISTORY: He does not use tobacco. He does not drink alcohol. He is . I am not sure if he is employed or not. FAMILY HISTORY: Brother had heart disease, otherwise did seem unremarkable. REVIEW OF SYSTEMS: Denies weight loss, dysphagia or any other specific complaints. OBJECTIVE: ENT: All within normal limits. NECK: No nodes, bruits or masses. LUNGS: Clear. CARDIOVASCULAR: Regular rate. No murmur or rub is heard. ABDOMEN: Soft, benign. No masses, organomegaly, or nodes. EXTREMITIES: Good pedal and radial pulses. NEUROLOGIC: Physiologic. ASSESSMENT: Atypical lower chest pain, initially it sounded like acid reflux, but poor response to medications raised the question of atypical coronary artery disease symptoms as well. One EKG in the ER reportedly showed some nonspecific T-wave changes in the precordial leads. His insomnia may well be related to the underlying source of this pain. Other possibility could be esophageal disease, gallbladder disease and others. PLAN: Screening labs again and an exercise MPI will be ordered. GI evaluation may be necessary. Follow up with cardiovascular. Findings are unremarkable especially EGD and sonogram. JACOB ELIZONDO MD DR: CATRACHO/jovana JOB#: [id number] / [id number]
[2019-12-29] MEDS ORDERED: MAG HYDROX/ALUMINUM HYD/SIMETH 30 ML ORAL.SUSP PO PRN (19:45)
[2019-12-29] MEDS ORDERED: PANTOPRAZOLE 40 MG TABLET.DR. PO ONE (20:00)
[2019-12-29 23:00] VITALS: BP 122/76
[2019-12-30 03:17] VITALS: BP 124/82
[2019-12-30] MEDS: PANTOPRAZOLE 40 MG TABLET.DR. PO SCH (06:22)
[2019-12-30] MEDS: SUCRALFATE 1 GM TABLET. PO SCH (06:22)
--- NOTE | 2019-12-30 06:40 | RAD ---
EXAM: RIGHT UPPER QUADRANT ULTRASOUND. HISTORY: Epigastric pain. COMPARISON: None. FINDINGS: Sonographic evaluation of the right upper quadrant was performed. The liver appears normal in parenchymal echotexture. There are no focal lesions. The gallbladder is unremarkable without evidence of stones, wall thickening or pericholecystic fluid. There is no sonographic Corral sign. The common duct measures 4 mm. The pancreas is mostly obscured. Limited images of the visualized portions of the head of the pancreas reveal no gross abnormality. The right kidney measures 9.7 cm. Cortical thickness and echogenicity are preserved. There is no hydronephrosis. The visualized portions of the abdominal aorta and inferior vena cava are grossly patent and normal in caliber. IMPRESSION: 1. The pancreas is mostly obscured. No cause for pain is identified. Electronically signed by: Carlo Eason MD (12/30/2019 6:37 AM) [facility]
[2019-12-30 07:00] VITALS: BP 121/79
[2019-12-30] MEDS ORDERED: IOHEXOL 240 MG/ML 50ML VIAL. PO ONE (07:00)
[2019-12-30] MEDS ORDERED: IOHEXOL 300 MG/ML 100ML VIAL. IV ONE (07:00)
[2019-12-30] MEDS ORDERED: CONTRAST GIVEN. MC PRN (07:15)
[2019-12-30] MEDS ORDERED: PANTOPRAZOLE 40 MG TABLET.DR. PO SCH (07:30)
--- NOTE | 2019-12-30 07:35 | EKG ---
[facility] [address] [place] [address] Test Date: 2019-12-30 Test Time: 07:29:39 Pat Name: MICHEL LUNA Department: Room: 244 1 Gender: M Couples Therapist: : 1965 Requested By: JACOB ELIZONDO Order Number: [id number] Reading MD: Flavio Dowd MD Measurements Intervals [place] Rate: 70 P: 90 CT: 158 QRS: 45 QRSD: 96 T: 50 QT: 390 QTc: 424 Interpretive Statements SINUS RHYTHM Electronically Signed On 12-30-2019 15:00:44 CDT by Flavio Dowd MD
--- NOTE | 2019-12-30 08:11 | PDOC ---
Provider Note Provider Note vss, labs show high lipids only- mpi and gb sono ok- ct abd pending as is gi consult- check lipase - may need egd as well if ct ok JACOB ELIZONDO MD December 30, 2019 08:11
--- NOTE | 2019-12-30 08:40 | NUR ---
pt leaving for ct at approx 0840. pt drank contrast at 0740.
--- NOTE | 2019-12-30 09:35 | PDOC2 ---
GI CONSULT Reason For Consult: possible gastritis HPI: HPI: 54 y/o male who speaks Belgian. Translation via cell phone per daughter Felicia. Ill x 2.5 months w/ burning epigastric pain that keeps him awake during the night. Associated w/ decreased appetite and sweating. Sometimes radiates to central chest. Was seen in ER a couple times - recently given Prilosec and Carafate which might have helped (though nurse tells me he took 30 Prilosec pills in two days). Labs, abd US, and cardiac workup unrevealing. Drinking contrast for CT this morning. Denies dysphagia, n/v, diarrhea, constipation, bleeding, and weight loss. Daughter says he mentions he usually stools in the morning and for awhile stooled in the evening which was concerning to him, but now things are back to normal. No previous EGD or colonoscopy. No GB, liver, pancreas, or PUD history. Difficult to say if he takes other medications at home. PMH: PMH: anxiety, insomnia FH: Family History: No pertinent hx (deneis GI cancers) Social History: Smoke: Quit (15 years ago ) ALCOHOL: none Drugs: None ROS: GEN: +sweats +insomnia HEENT: Denies blurred vision, sore throat CV: +chest pain RESP: Denies shortness of air, cough GI: Per HPI : Denies hematuria, dysuria ENDO: Denies weight changes NEURO: Denies confusion, dizziness MSK: Denies weakness, joint pain/swelling SKIN: Denies jaundice, pruritus Vitals: Vitals: Vital Signs Date Time Temp Pulse Resp B/P (MAP) Pulse Ox O2 Delivery O2 Flow Rate FiO2 12/30/19 07:00 97.1 77 18 121/79 (93) 94 Room Air 97.1 Labs: Labs: Laboratory Tests Test 12/29/19 12:02 12/29/19 17:35 White Blood Count 6.8 x10^3/uL (4.0-11.0) Red Blood Count 5.38 x10^6/uL (4.30-5.70) Hemoglobin 15.9 g/dL (13.0-17.5) Hematocrit 46.0 % (39.0-53.0) Mean Corpuscular Volume 86 fL (79-100) Mean Corpuscular Hemoglobin 30 pg (25-35) Mean Corpuscular Hemoglobin Concent 35 g/dL (31-37) Red Cell Distribution Width 13.3 % (11.5-14.5) Platelet Count 215 x10^3/uL (140-400) Neutrophils (%) (Auto) 73 % (31-73) Lymphocytes (%) (Auto) 20 % (24-48) Monocytes (%) (Auto) 5 % (0-9) Eosinophils (%) (Auto) 2 % (0-3) Basophils (%) (Auto) 1 % (0-3) Neutrophils # (Auto) 5.0 x10^3/uL (1.8-7.7) Lymphocytes # (Auto) 1.4 x10^3/uL (1.0-4.8) Monocytes # (Auto) 0.4 x10^3/uL (0.0-1.1) Eosinophils # (Auto) 0.1 x10^3/uL (0.0-0.7) Basophils # (Auto) 0.0 x10^3/uL (0.0-0.2) Sodium Level 139 mmol/L (136-145) Potassium Level 3.6 mmol/L (3.5-5.1) Chloride Level 104 mmol/L (98-107) Carbon Dioxide Level 25 mmol/L (21-32) Anion Gap 10 (6-14) Blood Urea Nitrogen 13 mg/dL (8-26) Creatinine 1.0 mg/dL (0.7-1.3) Estimated GFR (Cockcroft-Gault) 77.9 BUN/Creatinine Ratio 13 (6-20) Glucose Level 95 mg/dL (70-99) Calcium Level 8.2 mg/dL (8.5-10.1) Total Bilirubin 0.5 mg/dL (0.2-1.0) Aspartate Amino Transf (AST/SGOT) 23 U/L (15-37) Alanine Aminotransferase (ALT/SGPT) 39 U/L (16-63) Alkaline Phosphatase 102 U/L (46-116) Troponin I Quantitative < 0.017 ng/mL (0.000-0.055) < 0.017 ng/mL (0.000-0.055) Total Protein 7.9 g/dL (6.4-8.2) Albumin 3.7 g/dL (3.4-5.0) Albumin/Globulin Ratio 0.9 (1.0-1.7) Triglycerides Level 92 mg/dL (0-150) Cholesterol Level 260 mg/dL (0-200) LDL Cholesterol, Calculated 193 mg/dL (0-100) VLDL Cholesterol, Calculated 18 mg/dL (0-40) Non-HDL Cholesterol Calculated 211 mg/dL (0-129) HDL Cholesterol 49 mg/dL (40-60) Cholesterol/HDL Ratio 5.3 Thyroid Stimulating Hormone (TSH) 1.057 uIU/mL (0.358-3.74) Allergies: Coded Allergies: No Known Drug Allergies (Unverified , 05/04/17) Medications: Current Medications Medications (Trade) Dose Ordered Sig/Ramona Route PRN Reason Start Time Stop Time Status Last Admin Dose Admin Sucralfate (Carafate) 1 gm QIDACHS PO 12/29/19 11:30 12/30/19 06:22 Zolpidem Tartrate (Ambien) 10 mg PRN QHS PRN PO INSOMNIA 12/29/19 11:15 12/29/19 21:52 Regadenoson (Lexiscan) 0.4 mg 1X ONCE IV 12/29/19 15:00 12/29/19 15:01 DC 12/29/19 15:02 Aspirin (Aspirin Chewable) 81 mg 1X ONCE PO 12/29/19 16:45 12/29/19 16:46 DC 12/29/19 16:46 Pantoprazole Sodium (Protonix) 40 mg DAILYAC PO 12/29/19 16:45 12/30/19 06:22 Al Hydroxide/Mg Hydroxide (Mylanta Plus Xs) 30 ml PRN Q2HR PRN PO HEARTBURN / GAS 12/29/19 19:45 12/29/19 20:19 Pantoprazole Sodium (Protonix) 40 mg 1X ONCE PO 12/29/19 20:00 12/29/19 20:01 DC 12/29/19 20:19 Imaging: Imaging: RUQ US 12/29 The liver appears normal in parenchymal echotexture. There are no focal lesions. The gallbladder is unremarkable without evidence of stones, wall thickening or pericholecystic fluid. There is no sonographic Corral sign. The common duct measures 4 mm. The pancreas is mostly obscured. Limited images of the visualized portions of the head of the pancreas reveal no gross abnormality. The right kidney measures 9.7 cm. Cortical thickness and echogenicity are preserved. There is no hydronephrosis. The visualized portions of the abdominal aorta and inferior vena cava are grossly patent and normal in caliber. IMPRESSION: 1. The pancreas is mostly obscured. No cause for pain is identified. CXR 12/28 IMPRESSION:No acute cardiopulmonary abnormality. MPI 12/28 Conclusion 1. Regadenoson cardioisotope stress test did not show any evidence of ischemia or infarct. 2. Normal left ventricular systolic function with ejection fraction calculated at 83%. 3. Low risk for cardiac events. PE: GEN: NAD HEENT: Atraumatic, PERRL LUNGS: CTAB HEART: RRR ABD: NABS, S/ND - does not seem tender, he points to epigastrium and lower chest EXTREMITY: No edema SKIN: No rashes, no jaundice NEURO/PSYCH: A & O 3 A/P: A/P: Atypical chest pain, decreased appetite CRC screen - none -- Await CT. Agree w/ PPI +/- Carafate. Try GI cocktail PRN. ?EGD - inpt vs outpt - will review w/ Dr. Garcia. RAVEN BUITRAGO December 30, 2019 09:35
--- NOTE | 2019-12-30 09:47 | RAD ---
CT abdomen and pelvis with contrast History: Epigastric pain Technique: After the administration of intravenous contrast, CT imaging was performed of the abdomen and pelvis. Oral contrast was given. Multiplanar images are reviewed. Exposure: One or more of the following individualized dose reduction techniques were utilized for this examination: 1. Automated exposure control 2. Adjustment of the mA and/or kV according to patient size 3. Use of iterative reconstruction technique. Comparison: May 04, 2017 Findings: There is no significant abnormality of the visualized lung bases. There is no significant abnormality of the liver, spleen, pancreas, adrenal glands. Both kidneys enhance without hydronephrosis. There is a 1.6 hypodense lesion of the inferior left kidney, density measurements greater than a simple cyst about 25 Hounsfield units. Gallbladder is present without obvious intraluminal abnormality by CT. Accurate evaluation of bowel is limited without oral contrast. There is no significant inflammatory change adjacent to the bowel. There is no evidence of bowel obstruction, free fluid, or free air. Normal caliber appendix is visualized. The colon is not opacified with oral contrast during exam. There could be a degree of long segment mild wall thickening such as from the mid to distal transverse colon to the level of sigmoid colon and rectum although not associated with significant adjacent inflammatory-type change. There is very mild calcified plaque of the abdominal aorta. Small lytic focus of the L4 vertebral body anteriorly is stable, may be a small hemangioma. There is again umbilical fascial defect about 1.2 cm transverse, no internal bowel. Impression: 1. There is a hypodense lesion of the inferior left kidney with density measurements greater than simple cyst although possibly somewhat complex cyst. Ultrasound evaluation is recommended. 2. The colon is not opacified with oral contrast for accurate evaluation, cannot exclude mild long segment wall thickening as could be seen with colitis in the appropriate clinical setting, not associated with significant adjacent inflammatory-type change. 3. There is again small fat-containing umbilical hernia, no internal bowel. Electronically signed by: Justin Reynolds MD (12/30/2019 9:43 AM) [place] [id number]
[2019-12-30] MEDS ORDERED: LIDO:MAALOX 1:1 20 ML SINGLE DOSE. PO PRN (10:30)
[2019-12-30] MEDS ORDERED: POLYETHYLENE GLYCOL 3350 17 GM PACKET. PO PRN (10:30)
[2019-12-30] MEDS ORDERED: BISACODYL 5 MG TABLET.DR. PO PRN (10:30)
[2019-12-30 11:15] VITALS: BP 126/90
--- NOTE | 2019-12-30 11:15 | NUR ---
SS following for discharge planning. SS reviewed pt chart and discussed with pt RN. Pt is from home with spouse and is currently on room air. Pt may discharge to home today. SS will continue to follow for discharge planning.
--- NOTE | 2019-12-30 11:29 | PDOC ---
JULIETA HINKLE TOY CONSULTANT 12/30/19 1129: CARDIO Progress Notes Date and Time Date of Service 12/30/2019 Time of Evaluation 0930 Subjective Subjective: No shortness of breath, No Palpitations, Other (still has chest pain but mainly occuring with food) Vitals Vitals Vital Signs Date Time Temp Pulse Resp B/P (MAP) Pulse Ox O2 Delivery O2 Flow Rate FiO2 12/30/19 11:15 98.1 76 20 126/90 (102) 95 Room Air 98.1 Weight Weight [ ] Input and Output Intake and Output Intake and Output 12/30/19 07:00 Intake Total 1090 ml Balance 1090 ml Intake Oral 1090 ml # Voids 4 Laboratory Labs Laboratory Tests Test 12/29/19 12:02 12/29/19 17:35 12/30/19 09:35 White Blood Count 6.8 x10^3/uL (4.0-11.0) Red Blood Count 5.38 x10^6/uL (4.30-5.70) Hemoglobin 15.9 g/dL (13.0-17.5) Hematocrit 46.0 % (39.0-53.0) Mean Corpuscular Volume 86 fL (79-100) Mean Corpuscular Hemoglobin 30 pg (25-35) Mean Corpuscular Hemoglobin Concent 35 g/dL (31-37) Red Cell Distribution Width 13.3 % (11.5-14.5) Platelet Count 215 x10^3/uL (140-400) Neutrophils (%) (Auto) 73 % (31-73) Lymphocytes (%) (Auto) 20 % (24-48) Monocytes (%) (Auto) 5 % (0-9) Eosinophils (%) (Auto) 2 % (0-3) Basophils (%) (Auto) 1 % (0-3) Neutrophils # (Auto) 5.0 x10^3/uL (1.8-7.7) Lymphocytes # (Auto) 1.4 x10^3/uL (1.0-4.8) Monocytes # (Auto) 0.4 x10^3/uL (0.0-1.1) Eosinophils # (Auto) 0.1 x10^3/uL (0.0-0.7) Basophils # (Auto) 0.0 x10^3/uL (0.0-0.2) Sodium Level 139 mmol/L (136-145) Potassium Level 3.6 mmol/L (3.5-5.1) Chloride Level 104 mmol/L (98-107) Carbon Dioxide Level 25 mmol/L (21-32) Anion Gap 10 (6-14) Blood Urea Nitrogen 13 mg/dL (8-26) Creatinine 1.0 mg/dL (0.7-1.3) Estimated GFR (Cockcroft-Gault) 77.9 BUN/Creatinine Ratio 13 (6-20) Glucose Level 95 mg/dL (70-99) Calcium Level 8.2 mg/dL (8.5-10.1) Total Bilirubin 0.5 mg/dL (0.2-1.0) Aspartate Amino Transf (AST/SGOT) 23 U/L (15-37) Alanine Aminotransferase (ALT/SGPT) 39 U/L (16-63) Alkaline Phosphatase 102 U/L (46-116) Troponin I Quantitative < 0.017 ng/mL (0.000-0.055) < 0.017 ng/mL (0.000-0.055) Total Protein 7.9 g/dL (6.4-8.2) Albumin 3.7 g/dL (3.4-5.0) Albumin/Globulin Ratio 0.9 (1.0-1.7) Triglycerides Level 92 mg/dL (0-150) Cholesterol Level 260 mg/dL (0-200) LDL Cholesterol, Calculated 193 mg/dL (0-100) VLDL Cholesterol, Calculated 18 mg/dL (0-40) Non-HDL Cholesterol Calculated 211 mg/dL (0-129) HDL Cholesterol 49 mg/dL (40-60) Cholesterol/HDL Ratio 5.3 Thyroid Stimulating Hormone (TSH) 1.057 uIU/mL (0.358-3.74) Lipase 94 U/L (73-393) Physical Exam HEENT: Neck Supple W Full Motion Chest: Symmetric LUNGS: Clear to Auscultation Heart: S1S2, RRR (SR) Abdomen: Soft N/T Extremities: No Edema, No Calf Tenderness Neurology: alert, oriented, follow commands Assessment Assessment 1. Atypical CP: suspect GI. MPI unremarkable for ischemia. EF nml 2. GERD 3. Depression 4. HLP: LDL at 193 Recommendations 1. GI has been consulted 2. Start on lipitor. Dietitian consult for HLP 3. PPI none further cardiac harrington. RANDY DUFFY MD 12/30/19 1506: CARDIO Progress Notes Plan Plan Patient seen and examined. Agree with above nurse practitioner note. Myocardial perfusion study is unremarkable. Await GI evaluation. Please call with any further questions. JULIETA HINKLE APRN December 30, 2019 11:29 RANDY DUFFY MD December 30, 2019 15:06
--- NOTE | 2019-12-30 13:46 | NUR ---
pt to follow up for outpt EGD. Covid swab being done to rule out covid for procedure. Spoke to the pts daughter regarding the procedure and sent face sheet to CAT at Dr Ruth office and she will contact Felicia at [phone]. Pt to discharge today with home medications. Home meds being sent up from the pharmacy and returned to the pt. All discharge information given to daughter. Covid swaqb done prior to discharge.
--- NOTE | 2019-12-30 13:57 | DS ---
DATE OF DISCHARGE: HOSPITAL SUMMARY: A 54-year-old Malaysian male admitted with persistent upper abdomen and lower chest pain of uncertain nature with multiple ER visits and failure to respond to omeprazole and Carafate. Physical exam unremarkable. Laboratory studies were all within normal limits including lipase. Gallbladder sonogram was done after a normal exercise MPI was done and chest x-ray was clear. CT scan of the abdomen and pelvis was unremarkable and benign as well. Dr. Garcia saw in consultation and plans an EGD as an outpatient. He is stable to be discharged and followed as an outpatient at this point. FINAL DIAGNOSES: Persistent recurrent chest pain, etiology undetermined. OPERATIONS, PROCEDURES, COMPLICATIONS: None. CONSULTATIONS: Dr. Baca's group, Dr. Garcia. DISPOSITION: Continue omeprazole and Carafate and plan GI diet for now. EGD is next test available, but certainly the patient is clinically stable at this point. JACOB ELIZONDO MD DR: CATRACHO/jovana JOB#: [id number] / [id number]
[2019-12-30] MEDS ORDERED: ATOR40TA59 PO (15:08)
--- NOTE | 2019-12-30 15:10 | NUR ---
ATORVASTATIN CALLED IN TO [address] SPOKE DIRECTLY TO PHARMACIST DUE TO PTS ELEVATED CHOLESTEROL. ALL DISCHARGE INSTRUCTIONS WELL FOLLOW UP APPOINTMENTS, PHONE NUMBERS, COVID SWAB, PROCEDURES EXPLAINED THOROUGHLY WITH THE DAUGHTER TAMIKA. PT TO RETURN NEXT WEEK FOR OUTPATIENT EGD PENDING COVID SWAB. DR BEATTY OFFICE NOTIFIED WELL.
--- NOTE | 2019-12-30 15:25 | NUR ---
PTS DAUGHTER DID ALL OF TRANSLATING FOR FAMILY AND NURSE AND DOCTORS. 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
[2019-12-30] MEDS ORDERED: ATORVASTATIN CALCIUM 40 MG TABLET. PO SCH (21:00)
[2019-12-30] MEDS ORDERED: SUCRALFATE 1 GM TABLET. PO SCH (21:00)
== END 2019-12-30 16:00 | disposition home or self-care (01) | DRG 313 ==
LOC: 2 SOUTH 09:46
PROVIDERS: ADMIT Family Medicine; ATTEND Family Medicine
DX: R07.89 Other chest pain (principal); E78.5 Hyperlipidemia, unspecified; F32.9 Major depressive disorder, single episode, unspecified; F41.9 Anxiety disorder, unspecified; G47.00 Insomnia, unspecified; K21.9 Gastro-esophageal reflux disease without esophagitis; Z20.828 Contact with and (suspected) exposure to other viral communicable diseases; Z79.899 Other long term (current) drug therapy
CPT/HCPCS: 36415; 71046; 74177; 76705; 78452; 80053; 80061; 83690; 84443; 84484; 85025; 93005; 93017; A9500; J2785; G0378; U0003-CS